=== PATIENT | female | born 1945 | race Caucasian/White ===

== ENCOUNTER 2018-07-02 12:52 | Inpatient (IN) ==
[2018-07-02] MEDS ORDERED: HYDROmorphone HCL 1 MG/ML DISP.SYRIN IV ONE (13:00)
--- NOTE | 2018-07-02 13:13 | ERNOTE ---
Lower Extremity HPI - Narrative Date of Service: 07/02/18 - General Lower Extremities Pain: hip: right Time Seen by Provider: 07/02/18 12:58 Source: patient Exam Limitations: no limitations - Immun/Allergies/Home Medications Immunizations: IMMUNIZATION HX Immunizations Up to Date Yes Allergies/Adverse Reactions: Allergies Allergy/AdvReac Type Severity Reaction Status Date / Time Shondnk-Zad-Jid Reductase Allergy Mild Verified 07/02/18 13:01 Inhibitor Home Medications: HOME MEDICATIONS HYDROcodone/ACETAMINOPHEN [Hydrocodon-Acetaminoph 7.5-325] 1 ea PO QID 07/02/18 [Last Taken Unknown] RX: Hydroxyzine HCl 25 mg PO QID 07/02/18 [Last Taken Unknown] RX: Pantoprazole Sodium 40 mg PO DAILY 07/02/18 [Last Taken Unknown] Triamterene/Hydrochlorothiazid [Maxzide 37.5MG/25 MG] 1 tab PO DAILY 07/02/18 [Last Taken Unknown] - History of Present Illness Narrative: Pt. comes in by EMS with c/o R hip fracture that she obtained when she slipped and fell this morning. Pt. denies any numbness, tingling, fever, SOB, or CP. Pt. denies any alleviating factors and states that any movement exacerbates the pain. Pt. was seen at [facility] this morning and was found to have an intertrochanteric fracture of the R hip. Occurred: this morning Location of Incident: home Method of Injury: Reports: fell Reason for Fall: Reports: slipped Loss of Consciousness: Reports: no loss of consciousness Modifying Factors - (Improves): Reports: pain medication Modifying Factors - (Worsens): Reports: movement Associated Symptoms: Reports: unable to bear weight. Denies: snapping, popping sensation, dizzy/light headedness, headache, weakness, sensory loss, chest pain, vomiting/diarrhea, bowel/bladder problems Other Injuries: Reports: none Subsequent Symptoms: Denies: sensory loss, numbness, motor loss, bowel/bladder problem Prior Treament: Reports: recently seen, treated by physician. Denies: recently hospitalized, similar symptoms before, currently on antibiotics Review of Systems - Review of Systems Constitutional: Present: no symptoms reported. Absent: fever, chills, weakness, fatigue, malaise EYE: Present: no symptoms reported. Absent: eye pain, double vision ENT: Present: no symptoms reported. Absent: nose pain, nose congestion, nasal drainage, sore throat Respiratory: Present: no symptoms reported. Absent: shortness of breath, cough, wheezing Cardiology: Present: no symptoms reported. Absent: chest pain, palpitations, edema Gastrointestinal/Abdominal: Present: no symptoms reported Genitourinary: Present: no symptoms reported Musculoskeletal: Present: joint pain - R hip Skin: Present: no symptoms reported. Absent: rash, change in color Neurological: Present: no symptoms reported. Absent: headache, dizziness/light- headedness, numbness, tingling All Other Systems: All systems neg except as marked Medical History (Last Updated 07/02/18 @ 13:07 by Lory Platt RN) GERD (gastroesophageal reflux disease) HTN (hypertension) Surgical History: Surgical History (Last Updated 07/02/18 @ 13:07 by Lory Platt RN) Hx of fracture of left hip Hx of hysterectomy hx of jaw repair Family History: Family History (Last Updated 07/02/18 @ 13:07 by Lory Platt RN) Other No pertinent family history Social History: Preferred Language Guinean Do you have any yarsanism or No cultural preference? Smoking Status Never smoker Alcohol Use none Drug Use none No Social History Section defined Physical Exam - Physical Exam General Appearance: Present: wd/wn, alert, no apparent distress Head Exam: Present: normal inspection, no evidence of injury, no tenderness w palpation Eye Exam: Normal inspection: bilateral Ears, Nose, Throat: Present: normal ENT inspection, normal pharynx Neck: Present: normal inspection, nontender, supple, full range of motion. Absent: lymphadenopathy (R), lymphadenopathy (L) Respiratory: Present: no respiratory distress, normal breath sounds, no accessory muscle use, chest nontender, lungs clear Cardiovascular/Chest: Present: regular rate, rhythm, no murmur, normal peripheral pulses Back Exam: Present: normal inspection Extremity Exam: Present: decreased range of motion - R hip abduction and straight leg raise, pelvis stable, bony tenderness - R prox femur. Absent: pedal edema, calf tenderness Neurological Exam: Present: alert, oriented, normal mood/affect, no motor/sensory deficits, regional account executive II-XII nml as tested, normal cerebellar test Skin Exam: Present: normal color, warm/dry. Absent: pallor, skin rash Progress - Date and Time Seen: Date and Time: 07/02/18 13:10 Called and discussed with Dr Thomas. He states to plan surgery for tomorrow an consult medicine for admit. Reviewed all Labs and xray no interventions need performed prior to OR as result of those. 07/02/18 14:[address] Woodward who accepts pt. for admission. Will admit acute as pt. will likely need 3 day stay due to staying tonight and having sx tomorrow. - Results and Orders Patient's Lab Results:: I have reviewed the patient's lab results. - from [place] - Vital Signs Patient's Vital Signs:: I have reviewed the patient's vital signs. Vital Signs: Vital Signs 07/02/18 12:59 07/02/18 13:02 Temperature 36.7 C Pulse Rate 79 68 Respiratory Rate 15 Blood Pressure 117/33 O2 Sat by Pulse Oximetry 99 93 - EKG EKG #1 EKG: NSR, nonspecific ST T wave changes - not acute EKG read: Reviewed by me EKG Comments: Interp by Dr Hernandez - Progress/Reassessment Chief Complaint: Lower Extremity Pain/ Injury Departure Clinical Impression: Hip fracture Qualifiers: Encounter type: initial encounter Fracture type: closed Laterality: right Qualified Code(s): S72.001A - Fracture of unspecified part of neck of right femur, initial encounter for closed fracture - Departure Disposition: Still a patient Condition: Fair
[2018-07-02] MEDS: HYDROmorphone HCL 2 MG/ML VIAL IV PRN ×3 (15:44→22:11)
--- NOTE | 2018-07-02 19:07 | HP ---
Chief Complaint - Chief Complaint Date of Service: 07/02/18 Time of Service: 18:30 Chief Complaint: R. Hip pain./ R. intertrochanteric fracture History of Present Illness: Nomra salmon is a 73-year-old female who fell at home. She tried to get up and felt popping and clicking in her hip. EMS was summoned and found her on the floor with the right leg shortened and externally rotated. She is brought to the hospital emergency room where she was diagnosed with a right intertrochanteric fracture. She broke her left hip about 11 years ago. She's had multiple fractures in her life. Other surgeries include total abdominal hysterectomy, left jaw reconstruction, and the ORIF of the left hip about a decade ago. She ordinarily enjoys good health. Medical History (Last Updated 07/02/18 @ 16:38 by Hermelinda Jimenez RN) Chronic pain GERD (gastroesophageal reflux disease) HTN (hypertension) Surgical History: Surgical History (Last Reviewed 07/02/18 @ 15:08 by Hermelinda Jimenez RN) Hx of fracture of left hip Hx of hysterectomy hx of jaw repair Family History: Family History (Last Reviewed 07/02/18 @ 15:08 by Hermelinda Jimenez RN) Other No pertinent family history Social History: Patient Lives/Resources Home Utilized Preferred Language British Do you have any restorationism or No cultural preference? Smoking Status Current every day smoker Have you smoked in the past 12 Yes months Do you dip or chew tobacco No Alcohol Use none Drug Use none No Social History Section defined Review Of Systems (GEN) - Review of Systems EENTM: Present: No Symptoms Reported Respiratory: Present: No Symptoms Reported Cardiac: Present: No Symptoms Reported Abdominal: Present: No Symptoms Reported Genitourinary: Present: No Symptoms Reported Musculoskeletal: Present: Joint Pain - Right hip Neurological: Present: Tremors - Appears to have a benign essential tremor, Other - History of reflex sympathetic dystrophy Skin: Present: No Symptoms Reported Endocrine: Present: No Symptoms Reported Misc: All systems neg except as marked Immunizations: IMMUNIZATION HX Immunizations Up to Date Yes Allergies/Adverse Reactions: Allergies Allergy/AdvReac Type Severity Reaction Status Date / Time Wjqbkvo-Xtu-Vbw Reductase Allergy Mild Verified 07/02/18 15:08 Inhibitor Home Medications: HOME MEDICATIONS HYDROcodone/ACETAMINOPHEN [Hydrocodon-Acetaminoph 7.5-325] 1 ea PO QID 07/02/18 [Last Taken Unknown] Hydroxyzine HCl 25 mg PO QID PRN 07/02/18 [Last Taken Unknown] Pantoprazole Sodium 40 mg PO DAILY 07/02/18 [Last Taken Unknown] Triamterene/Hydrochlorothiazid [Maxzide 37.5MG/25 MG] 1 tab PO DAILY 07/02/18 [Last Taken Unknown] Exam - Exam Vital Signs: Vital Signs - Last Taken Temp 36.6 C 07/02/18 14:13 Pulse 79 07/02/18 14:24 Resp 15 07/02/18 14:24 BP 108/41 07/02/18 14:24 Pulse Ox 97 07/02/18 14:24 Constitutional: Present: Alert, Oriented x3, Cooperative, Well developed, Well nourished, No distress ENT Exam: Present: normal ENT inspection, hearing grossly normal, pharynx normal, TMs normal Eye Exam: bilateral eye: normal inspection, PERRL, EOMI Neck: Present: non-tender, full range of motion, supple, normal inspection Back Exam: Present: normal inspection Breasts: Present: Exam deferred Respiratory: Present: chest non-tender, lungs clear, normal breath sounds, no respiratory distress Cardiovascular/Chest: Present: normal peripheral pulses, regular rate, rhythm, no chest tenderness, no edema, no gallop, no JVD, no murmur Peripheral Pulses: carotid (R): 2+, carotid (L): 2+ Abdomen: Present: Normal bowel sounds, soft, nontender, nondistended /Rectal: Present: Exam deferred Extremity: Present: other - Right hip pain with shortening and external rotation of the right lower extremity. Other extremities are unremarkable. Lymphatic: Present: no adenopathy Neurologic: Present: case preparer and liner II-XII nml as tested, no motor/sensory deficits, alert, other - Benign essential tremor Appearance: Present: appropriate appearance, appropriate insight, neat, no memory impairment Eye contact: Present: cooperative, good eye contact, normal speech, avoids eye contact Thoughts: Present: normal thought pattern, no apparent hallucination Assessment/Plan - Narrative Narrative: 1. Preop lab and EKG have been reviewed and are unremarkable. 2. Physical exam is consistent with right intertrochanteric fracture 3. Benign essential tremor 4. Reflex sympathetic dystrophy 5. She has a full upper denture and no lower denture. Plan: 1. Mrs. salmon is medically approved for her anticipated ORIF of the right hip tomorrow. She is requesting this to be done with spinal anesthesia but she will discuss that with anesthesia and surgery. She had her left hip repaired about 11 years ago under spinal anesthesia. 2. Pain management with the allotted 1 mg IV every 3 hours. She has been doing this since the emergency room and it has helped her pain control quite well. 3. Repeat CBC and BMP tomorrow morning - Assessment/Plan (1) Intertrochanteric fracture of right hip Problem: Acute Qualifiers: Encounter type: initial encounter Fracture type: closed Fracture alignment: displaced Qualified Code(s): S72.141A - Displaced intertrochanteric fracture of right femur, initial encounter for closed fracture (2) Benign essential tremor Problem: Chronic (3) Reflex sympathetic dystrophy Problem: Chronic (4) history of multiple fractures Problem: Chronic
[2018-07-02] MEDS ORDERED: hydrOXYzine HCL 25 MG TABLET PO PRN (19:48)
[2018-07-02] MEDS: PANTOPRAZOLE SODIUM 40 MG in NORMAL SALINE 100 ML IV SCH (21:18)
[2018-07-03] MEDS: HYDROmorphone HCL 2 MG/ML VIAL IV PRN ×2 (01:35→04:44)
[2018-07-03 05:17] LABS: Hematocrit 30.8 % (37.0-47.0); Hemoglobin 10.5 gm/dL (12.5-16.0); Mean Cell Volume 91.4 fl (78-100); Mean Corpuscular Hemoglobin 31.2 pg (27-31); Mean Corpuscular Hgb Conc 34.1 g/dl (32-36); Mean Platelet Volume 8.9 fl (8-12.5); Neutrophil # 7.7 K/mm3 (1.3-6.0); Neutrophil % 64.6 % (42-75.0); Platelet Count 225 K/mm3 (150-450); Red Blood Count 3.37 M/mm3 (4.2-5.4); Red Cell Distribution Width 12.7 % (11.5-14.0); White Blood Count 11.9 K/mm3 (4.0-10.5)
[2018-07-03 05:25] LABS: Anion Gap 13.2 mmol/L (6.8-13.8); Calcium * 8.7 mg/dL (7.9-10.9); Carbon Dioxide 25.9 mmol/L (24-32.6); Estimated Creat Clear 55.8; Potassium 4.1 mmol/L (3.4-4.6)
[2018-07-03] MEDS: HYDROmorphone HCL 1 MG/ML DISP.SYRIN IV PRN ×3 (07:34→14:40)
[2018-07-03] MEDS ORDERED: NORMAL SALINE 500 ML IV PRN (09:04)
--- NOTE | 2018-07-03 09:21 | CONS ---
[facility] - General Date of Service: 07/03/18 Narrative: Patient presented to [facility] after a fall. Patient notes she was putting on her house coat and lost her balance and fell onto her right hip. She had immediate pain at this time. She was then taken to the hospital where it was noted that she had a right intertrochanteric femur fracture. Patient was then transferred to [facility], and admitted for care. Her pain today is an 8/10, she just received pain medication for this. She states her pain is worse with movement better with rest. She notes no other significant symptoms at this time. Source: patient - History of Present Illness Allergies/Adverse Reactions: Allergies Kfkappn-Qgm-Vvx Reductase Inhibitor Allergy (Mild, Verified 07/02/18 15:08) Home Medications: Home Medications Medication Instructions Recorded Last Taken HYDROcodone/ACETAMINOPHEN 1 ea PO QID 07/02/18 Unknown [Hydrocodon-Acetaminoph 7.5-325] Hydroxyzine HCl 25 mg PO QID PRN 07/02/18 Unknown Pantoprazole Sodium 40 mg PO DAILY 07/02/18 Unknown Triamterene/Hydrochlorothiazid 1 tab PO DAILY 07/02/18 Unknown [Maxzide 37.5MG/25 MG] Medications - Medications Current Medications: Current Medications Hydromorphone HCl (Dilaudid) 1 mg IV Q3H PRN PRN Reason: Severe Pain (pain scale 7-10) Stop: 08/02/18 06:22 Last Admin: 07/03/18 07:34 Dose: 1 mg Documented by: Pantoprazole Sodium 40 mg/ (Sodium Chloride) 100 mls @ 400 mls/hr IV Q24H [facility] Stop: 08/01/18 19:16 Last Infusion: 07/03/18 08:56 Dose: Infused Documented by: Physical Examination - Exam Vital Signs: Vital Signs - Last Taken Temp 37.3 C 07/03/18 06:50 Pulse 95 07/03/18 06:50 Resp 20 07/03/18 06:50 BP 119/72 07/03/18 06:50 Pulse Ox 93 07/03/18 06:50 O2 Oxygen Delivery Method Room Air Constitutional: Present: Alert, Cooperative, Mild distress - pain of right hip Extremity: Present: other - RLE--> no obvious abrasions or wounds, sensation intact light touch, distal pulses 2+, 5/5 plantar flexion dorsiflexion of the ankle, diffuse tenderness to palpation about right hip, significant lack of range of motion due to pain Eye contact: Present: cooperative Thoughts: Present: normal thought pattern - Results and Findings: Lab/Microbiology results last 24 hrs: Abnormal/Pending Laboratory Last 24 HRS 07/03/18 07/03/18 05:10 05:10 WBC 11.9 H RBC 3.37 L Hgb 10.5 L Hct 30.8 L MCH 31.2 H Immature Gran % (Auto) 1.00 H Immature Gran # (Auto) 0.12 H Neutrophils # 7.7 H BUN/Creatinine Ratio 22.0 H - Assessments/Findings (1) Intertrochanteric fracture of right hip Problem: Acute Qualifiers: Encounter type: initial encounter Fracture type: closed Fracture alignment: displaced Qualified Code(s): S72.141A - Displaced intertrochanteric fracture of right femur, initial encounter for closed fracture Plan - Plan Plan: - 73 y/o female presents status post a fall. Patient was seen at [facility] x-ray revealed a right intertrochanteric femur fracture. She was then transferred to [facility] for further care. Patient was admitted, she has been seen by medicine and cleared for surgical intervention. Discussed with patient conservative or surgical intervention of her right femur fracture. Discussed risk first benefits including but not limited to continued pain, malunion versus nonunion fracture healing, DVT, infection, bleeding, cardiac risk of surgery, paralysis, stroke. Patient agreed to proceed with surgical intervention on 07/03/[address] Thomas. Consents have been signed and patient will undergo surgical intervention of right closed reduction with cephalo-medullary nailing of intertrochanteric femur fracture. All patient's questions have been answered appropriate this time.
--- NOTE | 2018-07-03 10:19 | ANES ---
Anesthesia Pre Procedure Eval Vitals/Labs: Last Vital Signs Temp 37.3 C 07/03/18 06:50 Pulse 95 07/03/18 06:50 Resp 20 07/03/18 06:50 BP 119/72 07/03/18 06:50 Pulse Ox 93 07/03/18 06:50 HOME MEDICATIONS HYDROcodone/ACETAMINOPHEN [Hydrocodon-Acetaminoph 7.5-325] 1 ea PO QID 07/02/18 [Last Taken Unknown] Hydroxyzine HCl 25 mg PO QID PRN 07/02/18 [Last Taken Unknown] Pantoprazole Sodium 40 mg PO DAILY 07/02/18 [Last Taken Unknown] Triamterene/Hydrochlorothiazid [Maxzide 37.5MG/25 MG] 1 tab PO DAILY 07/02/18 [Last Taken Unknown] Allergies/Adverse Reactions: Allergies Allergy/AdvReac Type Severity Reaction Status Date / Time Mdoxghx-Mjq-Anp Reductase Allergy Mild Verified 07/02/18 15:08 Inhibitor - Planned Procedure Planned Procedure: ORIF right hip Medication List Reviewed:: Yes Allergies Verified: Yes Medical History (Last Reviewed 07/03/18 @ 10:18 by Nakul Collins CRNA) Chronic pain GERD (gastroesophageal reflux disease) HTN (hypertension) Surgical History (Last Reviewed 07/03/18 @ 10:18 by Nakul Collins CRNA) Hx of fracture of left hip Hx of hysterectomy hx of jaw repair Family History (Last Reviewed 07/03/18 @ 10:18 by Nakul Collins CRNA) Other No pertinent family history - Family Anesthesia History Family History:: no untoward family reactions to anesthesia, no familial bleeding tendencies, no family history of clotting disorders, no family history of premature - Airway/Neck/Teeth Within Normal Limits:: Yes Mallampatti Score: 2 Thyromental (T-M) distance: > 6 cm Mandibulo Hyoid distance: > 3 cm - Respiratory Respiratory Physical: lungs clear Smoking Status: Current every day smoker Discussed smoking cessation including day of surgery: Yes Sleep Apnea currently treated: No Sleep Apnea by current assessment: No Discussed Risks/Treatment of BRENNON: No - Cardiovascular Tolerate Activity: Fair Heart Sounds: S1 & S2, Regular - Anesthesia Assessment and Plan ASA Class: PS, III Anesthesia Type Plan: Spinal
--- NOTE | 2018-07-03 11:16 | PN ---
Subjective - Date and Time Seen Date: 07/03/18 Time: 09:00 Subjective Narrative: Norma salmon is having more discomfort this morning and the fractured right hip. She is to go to surgery sometime today for an ORIF right hip to repair the intertrochanteric fracture. She is requesting spinal anesthesia. Otherwise there've been no changes through the night. Dilaudid 1 mg every 3 hours has been effective but she is in obvious discomfort at this time. She is medically cleared for her surgery. Objective - Review of Systems Generalized/Overall Review: Reports: No Symptoms Reported EENTM: Reports: No Symptoms Reported Cardiac: Reports: No Symptoms Reported Abdominal: Reports: No Symptoms Reported Genitourinary Symptoms: Reports: No Symptoms Reported Musculoskeletal Complaints: Reports: Joint Pain - Due to fractured right hip Neurological: Reports: No Symptoms Reported Skin: Reports: No Symptoms Reported Endocrine: Reports: No Symptoms Reported - Vitals Vitals: Last Vital Signs Temp 37.3 C 07/03/18 06:50 Pulse 81 07/03/18 07:00 Resp 20 07/03/18 06:50 BP 119/72 07/03/18 06:50 Pulse Ox 93 07/03/18 06:50 - Abnormal Lab Findings Abnormal Lab Findings: Abnormal Lab Results 07/03/18 07/03/18 Range/Units 05:10 05:10 WBC 11.9 H (4.0-10.5) K/mm3 RBC 3.37 L (4.2-5.4) M/mm3 Hgb 10.5 L (12.5-16.0) gm/dL Hct 30.8 L (37.0-47.0) % MCH 31.2 H (27-31) pg Immature Gran % (Auto) 1.00 H (0.001-0.429) % Immature Gran # (Auto) 0.12 H (0.000-0.0310) K/mm3 Neutrophils # 7.7 H (1.3-6.0) K/mm3 BUN/Creatinine Ratio 22.0 H (9.0-21.6) - EKG/Xray Findings EKG: NSR EKG read: Interp. by me XRAY: hip - Right Interpretation: Reviewed by me - Exam Constitutional: Present: Alert, Oriented x3, Cooperative, Well developed, Well nourished, No distress ENT Exam: Present: normal ENT inspection, hearing grossly normal, pharynx normal, TMs normal Neck: Present: non-tender, full range of motion, supple Breasts: Present: Exam deferred Respiratory: Present: chest non-tender, lungs clear, normal breath sounds, no respiratory distress, no accessory muscle use Cardiovascular/Chest: Present: normal peripheral pulses, regular rate, rhythm, no chest tenderness, no edema, no gallop, no JVD, no murmur, no rub Abdomen: Present: Normal bowel sounds, soft, nontender, nondistended, no rebound tenderness, no hepatospenomegaly, no masses /Rectal: Present: Exam deferred Extremity: Present: normal range of motion - Of the upper extremities and left lower extremity. The right hip is fractured and so range of motion cannot be assessed. Skin Exam: Present: normal color, warm/dry, no cyanosis Lymphatic: Present: no adenopathy, axilla node tender (R) Neurologic: Present: clinical auditor II-XII nml as tested, normal cerebellar test Appearance: Present: appropriate appearance, appropriate insight, neat, no memory impairment Eye contact: Present: cooperative, good eye contact, normal speech Thoughts: Present: normal thought pattern, no apparent hallucination Cauti Physician Documentation - Urinary Catheter Management Urethral (Ferrer) Urethral Indwelling: No Date of Insertion: 07/02/18 Time of Insertion: 11:00 Assessment/Plan Plan Narrative: 1. Fluid bolus of 500 mL of normal saline to be given at 11 AM since she is having spinal anesthesia. She has been nothing by mouth since midnight. She's had no IV fluids since admission. She didn't eat well yesterday evening. 2. Proceed with planned right hip ORIF procedure. - Problems/Diagnosis (1) Intertrochanteric fracture of right hip Problem: Acute Qualifiers: Encounter type: initial encounter Fracture type: closed Fracture alignment: displaced Qualified Code(s): S72.141A - Displaced intertrochanteric fracture of right femur, initial encounter for closed fracture (2) Benign essential tremor Problem: Chronic (3) Reflex sympathetic dystrophy Problem: Chronic (4) history of multiple fractures Problem: Chronic
[2018-07-03] MEDS ORDERED: ceFAZolin SODIUM 1 GM in DEXTROSE 5 % IN WATER 100 ML IV ONE ×2 (11:21)
[2018-07-03] MEDS: RINGER'S SOLUTION,LACTATED 1,000 ML IV PRN ×5 (11:45→23:18)
[2018-07-03] MEDS ORDERED: ceFAZolin SODIUM 1 GM VIAL IV PRN (12:30)
--- NOTE | 2018-07-03 14:14 | ANES ---
Post Anesthesia Discharge - Transfer of Care Transfer of Care handoff given to nurse: Yes - Discharge from PACU Discharge from PACU when meets criteria: Yes - Alert and comfortable.
--- NOTE | 2018-07-03 14:29 | ANES ---
Post Anesthesia Assessment - Vital Signs Vitals: Last Vital Signs Temp 36.9 C 07/03/18 14:25 Pulse 107 H 07/03/18 14:25 Resp 21 H 07/03/18 14:25 BP 105/43 07/03/18 14:25 Pulse Ox 93 07/03/18 14:25 Airway Patency: Normal - Mental Status Level Of Consciousness: Awake, Alert, Appropriate - Pain Level Pain Score: 0 - N/V Assessment Nausea/Vomiting Presence: None Dehydration:: No - Additional Notes Comments:: Returning to Room.
[2018-07-03] MEDS ORDERED: ACETAMINOPHEN 500 MG TABLET PO PRN (16:06)
[2018-07-03] MEDS ORDERED: MAGNESIUM HYDROXIDE 30 ML UDC PO PRN (16:06)
[2018-07-03] MEDS ORDERED: oxyCODONE HCL/ACETAMINOPHEN 1 TAB TABLET PO PRN (16:06)
[2018-07-03] MEDS ORDERED: ONDANSETRON HCL/PF 2 MG/ML VIAL IV PRN (16:06)
[2018-07-03] MEDS ORDERED: MAG HYDROX/ALUMINUM HYD/SIMETH 30 ML UDC PO PRN (16:06)
--- NOTE | 2018-07-03 16:16 | OR ---
Operative Report - Dictated Report Narrative: Date: 07/03/2018 Surgeon: Kirk Thomas M.D. Taxicab Dispatcher: Mani Mosher PA-C Preoperative diagnosis: Right reverse obliquity intertrochanteric femur fracture Postoperative diagnosis: Reverse obliquity intertrochanteric femur fracture Operations and procedures: 1. Open reduction, cephalo-medullary fixation right reverse obliquity intertrochanteric femur fracture 2. Intraoperative interpretation of radiographs Anesthesia: Spinal Specimens: None Estimated blood loss: 300 Milliliters Retained implants: [employer] Trigen InterTAN 130 degree size 11.5 mm by 20 centimeter nail with 100 millimeter lag screw and 85 millimeter compression screw, with distal locking screw Complications: None Indications for procedure: Norma is a 73-year-old female who injured the right leg after a fall from standing height. They were admitted to the hospital after being evaluated in the emergency department. Once the medical provider felt that they were stable for surgical treatment, the risks and benefits alternatives were discussed. The risks of , blood clots, bleeding, infection, nerve/tendon/blood vessel injury, malunion, nonunion, failure of implants, painful implants, arthrosis, and need for additional procedures were discussed. The extremity was marked and consent was obtained on the floor. Procedure: After marking the operative extremity on the floor, the patient was taken to the operating room. A timeout was performed. IV antibiotics consisting of 1 g of Ancef was administered. A spinal anesthetic was induced by anesthesia, and the patient was then placed onto a fracture table with a well-padded perineal post. The non-operative leg was placed in a well-padded well leg jain in lithotomy position with an SCD on the leg. The operative leg was placed in a well-padded traction boot. Longitudinal traction, internal rotation, flexion, and adduction were utilized in order to attempt to reduce the fracture, but we were unable to adequately reduce the fracture closed. Preliminary images were attained utilizing C-arm in both the AP and lateral views. This confirmed that we had obtained adequate visualization of the fracture as well as reduction. Next the hip was then prepped and draped in a standard sterile fashion. An incision was made laterally over the fracture site approximately 7 cm in length. The IT band was sharply incised revealing the vastus lateralis which was bluntly dissected off the lateral aspect of the proximal femur and retracted superiorly with a Hohmann retractor. This revealed the fracture site which was noted to be a reverse obliquity fracture at the level of the lesser trochanter. Combination of a ball spike pusher and a bone hook were used to hold the fracture reduced. Next, the guidewire was placed percutaneously proximal to the greater trochanter to saleem a starting point at the medial aspect of the greater trochanter centered on the lateral view. This was advanced down to the level below the lesser trochanter. A scalpel was utilized to dissect down to the greater trochanter in order to lace the soft tissue protector down to bone. The entry reamer was then advanced down the proximal femur to the level of the lesser trochanter. The above nail was then selected and impacted into place. The outrigger was utilized in order to confirm the appropriate depth of the nail. Using the alignment device on the outrigger, the guidewire was was placed into the femoral head in a center center position on AP and lateral views. A tip apex distance less than 25 mm combined was obtained. Once we felt that we had placed the guidewire in the appropriate position, it was measured. Next the compression screw entry drill was advanced through the lateral cortex. This was then drilled down to the appropriate depth for the compression screw, again confirming that we are within the confines the bone. The derotational bar was then placed and the lag screw was drilled to the appropriate depth. The lag screw was then secured in place ensuring that we were within the confines of the bone. The compression screw was then inserted. Once it was felt we had adequately stabilized the intertrochanteric fracture, the distal interlocking screw was placed in a static position confirmed to be the appropriate length and within the nail on both AP and lateral views. The nail was secured and the outrigger was removed. The wounds were then thoroughly irrigated. Final images were obtained. The hip was placed through range of motion and showed no crepitance. The deep fascia was closed with 0 Vicryl, the subcutaneous tissue with 3-0 Vicryl, and the skin was closed with jazzy. Omar rile dressings of Xeroform, 4 x 4s, and tegaderm were applied. All sponge, sharp, and instrument counts were correct prior to closing the wounds. The patient was then awoken and transferred to the postanesthesia care unit in stable condition.
[2018-07-03] MEDS: ceFAZolin SODIUM 1 GM in DEXTROSE 5 % IN WATER 100 ML IV SCH ×4 (16:36→23:21)
[2018-07-03] MEDS: oxyCODONE HCL/ACETAMINOPHEN 1 TAB TABLET PO PRN ×2 (16:36→20:50)
[2018-07-03] MEDS ORDERED: ENOXAPARIN SODIUM 40 MG/0.4 ML SYRG SC SCH (17:00)
[2018-07-03] MEDS: MORPHINE SULFATE 2 MG/ML DISP.SYRIN IV PRN ×2 (18:58→23:13)
[2018-07-03] MEDS: PANTOPRAZOLE SODIUM 40 MG in NORMAL SALINE 100 ML IV SCH (19:25)
[2018-07-03] MEDS: SENNOSIDES/DOCUSATE SODIUM 1 TAB TABLET PO SCH (23:19)
[2018-07-04] MEDS: oxyCODONE HCL/ACETAMINOPHEN 1 TAB TABLET PO PRN ×5 (01:34→20:53)
[2018-07-04] MEDS: MORPHINE SULFATE 2 MG/ML DISP.SYRIN IV PRN ×6 (03:49→20:26)
[2018-07-04 05:02] LABS: Hemoglobin 8.1 gm/dL (12.5-16.0); Mean Corpuscular Hemoglobin 31.6 pg (27-31); Mean Platelet Volume 9.2 fl (8-12.5); Platelet Count 171 K/mm3 (150-450); Red Blood Count 2.56 M/mm3 (4.2-5.4); Red Cell Distribution Width 12.7 % (11.5-14.0); White Blood Count 9.1 K/mm3 (4.0-10.5)
[2018-07-04 05:03] LABS: Hematocrit 24.1 % (37.0-47.0)
[2018-07-04 05:14] LABS: Anion Gap 10.6 mmol/L (6.8-13.8); BUN/Creatinine Ratio 19.2 (9.0-21.6); Carbon Dioxide 26.9 mmol/L (24-32.6); Estimated Creat Clear 65.1; Potassium 3.5 mmol/L (3.4-4.6)
[2018-07-04] MEDS: RINGER'S SOLUTION,LACTATED 1,000 ML IV PRN (07:54)
[2018-07-04] MEDS: ENOXAPARIN SODIUM 40 MG/0.4 ML SYRG SC SCH (08:43)
[2018-07-04] MEDS: ceFAZolin SODIUM 1 GM in DEXTROSE 5 % IN WATER 100 ML IV SCH ×2 (09:03)
--- NOTE | 2018-07-04 09:23 | PN ---
Subjective - Date and Time Seen Date: 07/04/18 Time: 07:30 Subjective Narrative: Patient is up sitting in chair upon presentation. She states she has moderate pain, worse with standing, better with rest. She notes she just received a dose of pain medication. She reports no other acute concerns currently. Objective - Vitals Vitals: Last Vital Signs Temp 37.9 C 07/04/18 08:45 Pulse 92 07/04/18 08:45 Resp 14 07/04/18 08:45 BP 96/41 07/04/18 08:45 Pulse Ox 96 07/04/18 08:45 - Abnormal Lab Findings Abnormal Lab Findings: Abnormal Lab Results 07/04/18 07/04/18 Range/Units 05:01 05:01 RBC 2.56 L (4.2-5.4) M/mm3 Hgb 8.1 L (12.5-16.0) gm/dL Hct 24.1 L (37.0-47.0) % MCH 31.6 H (27-31) pg Random Glucose 122 H (70-110) mg/dL - Exam Constitutional: Present: Alert, Cooperative Respiratory: Present: no respiratory distress Extremity: Present: other - RLE--> bandages c/d/i, SILT, 5/5 PF/DF, distal capillary refill brisk, diffuse ttp over right hip region Eye contact: Present: cooperative Cauti Physician Documentation - Urinary Catheter Management Urethral (Ferrer) Urethral Indwelling: No Date of Insertion: 07/02/18 Time of Insertion: 11:00 Assessment/Plan Plan Narrative: - 73 y/o female post-op day #1 s/p right open reduction with cephalmedullary nailing of intertrochanteric femur fracture - WBAT with assistance PRN - PT/OT progress as tolerated - PO diet as tolerated - PO pain medication PRN - VTE prophylaxis: lovenox, SCDs in bed, tawanda hose - Hgb 8.1 continue to monitor - Chronic medical problems per medicine team - Disps: Continue inpatient care until all PT goals are met, pain well contr olled, evaluate discharge to senior care facility vs. home - Problems/Diagnosis (1) Intertrochanteric fracture of right hip Problem: Acute Qualifiers: Encounter type: initial encounter Fracture type: closed Fracture alignment: displaced Qualified Code(s): S72.141A - Displaced intertrochanteric fracture of right femur, initial encounter for closed fracture
--- NOTE | 2018-07-04 12:43 | PN ---
Subjective - Date and Time Seen Date: 07/04/18 Time: 09:45 Subjective Narrative: Genital and his first postop from a right ORIF to repair an intertrochanteric fracture. She has been up once and it was very painful to get out of bed but less painful standing up from the chair and going back to bed. After much discussion she agreed to go to a nursing home facility. She has no other complaints or requests this morning. Nursing reports no new problems. Objective - Review of Systems Generalized/Overall Review: Reports: No Symptoms Reported EENTM: Reports: No Symptoms Reported Respiratory: Reports: No Symptoms Reported Cardiac: Reports: No Symptoms Reported Abdominal: Reports: No Symptoms Reported Genitourinary Symptoms: Reports: No Symptoms Reported Musculoskeletal Complaints: Reports: Joint Pain - Secondary to ORIF right hip Neurological: Reports: No Symptoms Reported Skin: Reports: No Symptoms Reported Endocrine: Reports: No Symptoms Reported Misc: All systems neg except as marked - Vitals Vitals: Last Vital Signs Temp 37.9 C 07/04/18 10:29 Pulse 85 07/04/18 10:29 Resp 16 07/04/18 10:29 BP 122/60 07/04/18 10:29 Pulse Ox 96 07/04/18 08:45 - Abnormal Lab Findings Abnormal Lab Findings: Abnormal Lab Results 07/04/18 07/04/18 Range/Units 05:01 05:01 RBC 2.56 L (4.2-5.4) M/mm3 Hgb 8.1 L (12.5-16.0) gm/dL Hct 24.1 L (37.0-47.0) % MCH 31.6 H (27-31) pg Random Glucose 122 H (70-110) mg/dL - Exam Constitutional: Present: Alert, Oriented x3, Cooperative, Well developed, Well nourished, No distress ENT Exam: Present: normal ENT inspection, hearing grossly normal, pharynx normal Neck: Present: non-tender, limited range of motion Breasts: Present: Exam deferred Respiratory: Present: chest non-tender, rhonchi - Which cleared with coughing Cardiovascular/Chest: Present: normal peripheral pulses, regular rate, rhythm Abdomen: Present: Normal bowel sounds, soft, nontender /Rectal: Present: Exam deferred Extremity: Present: normal range of motion - Of both arms and left lower extremity. Limited motion in the right hip being status post postop day #1. Skin Exam: Present: normal color Lymphatic: Present: no adenopathy Neurologic: Present: product safety manager II-XII nml as tested Appearance: Present: appropriate appearance Eye contact: Present: cooperative Thoughts: Present: normal thought pattern Cauti Physician Documentation - Urinary Catheter Management Urethral (Ferrer) Urethral Indwelling: No Date of Insertion: 07/02/18 Time of Insertion: 11:00 Assessment/Plan Plan Narrative: 1. Continue to progress activity as directed by orthopedics and as tolerated. 2. Anticipate discharge tomorrow to nursing home facility 3. Morning labs to include a CBC and CMP - Problems/Diagnosis (1) Intertrochanteric fracture of right hip Problem: Acute Qualifiers: Encounter type: initial encounter Fracture type: closed Fracture alignment: displaced Qualified Code(s): S72.141A - Displaced intertrochanteric fracture of right femur, initial encounter for closed fracture (2) Benign essential tremor Problem: Chronic (3) Reflex sympathetic dystrophy Problem: Chronic (4) history of multiple fractures Problem: Chronic
[2018-07-04] MEDS: PANTOPRAZOLE SODIUM 40 MG in NORMAL SALINE 100 ML IV SCH (20:25)
[2018-07-04] MEDS: SENNOSIDES/DOCUSATE SODIUM 1 TAB TABLET PO SCH (20:26)
[2018-07-05] MEDS: MORPHINE SULFATE 2 MG/ML DISP.SYRIN IV PRN ×3 (00:21→09:37)
[2018-07-05] MEDS: oxyCODONE HCL/ACETAMINOPHEN 1 TAB TABLET PO PRN ×3 (03:57→12:22)
[2018-07-05 05:31] LABS: Mean Cell Volume 93.5 fl (78-100); Mean Corpuscular Hgb Conc 33.2 g/dl (32-36); Mean Platelet Volume 9.5 fl (8-12.5); Platelet Count 177 K/mm3 (150-450); Red Blood Count 2.45 M/mm3 (4.2-5.4); Red Cell Distribution Width 12.4 % (11.5-14.0); White Blood Count 10.3 K/mm3 (4.0-10.5)
[2018-07-05 05:35] LABS: Hemoglobin 7.6 gm/dL (12.5-16.0)
[2018-07-05 05:36] LABS: Hematocrit 22.9 % (37.0-47.0)
[2018-07-05 05:39] LABS: Anion Gap 13.6 mmol/L (6.8-13.8); BUN/Creatinine Ratio 18.1 (9.0-21.6); Calcium * 8.1 mg/dL (7.9-10.9); Carbon Dioxide 26.1 mmol/L (24-32.6); Estimated Creat Clear 70.6; Potassium 3.7 mmol/L (3.4-4.6)
[2018-07-05] MEDS ORDERED: diphenhydrAMINE HCL 50 MG/ML VIAL IV ONE (08:13)
[2018-07-05] MEDS: ENOXAPARIN SODIUM 40 MG/0.4 ML SYRG SC SCH (08:22)
--- NOTE | 2018-07-05 10:21 | PN ---
Subjective - Date and Time Seen Date: 07/05/18 Time: 10:16 Subjective Narrative: Patient reports no acute events overnight. She notes that she has had decreasing in pain since an acute rise yesterday after she felt a pop. X-rays revealed a mild displacement of her lesser trochanter, no severe significant surgical intervention is warranted. She states no other acute symptoms currently. She notes her pain is worse with weight-bearing better with rest. Objective - Vitals Vitals: Last Vital Signs Temp 36.9 C 07/05/18 10:12 Pulse 87 07/05/18 10:12 Resp 16 07/05/18 10:12 BP 117/41 07/05/18 10:12 Pulse Ox 94 07/05/18 10:12 - Abnormal Lab Findings Abnormal Lab Findings: Abnormal Lab Results 07/05/18 07/05/18 07/05/18 Range/Units 05:28 05:28 08:30 RBC 2.45 L (4.2-5.4) M/mm3 Hgb 7.6 L* (12.5-16.0) gm/dL Hct 22.9 L* (37.0-47.0) % Random Glucose 113 H (70-110) mg/dL Crossmatch See Detail - Exam Constitutional: Present: Alert, Cooperative Extremity: Present: other - RLE--> bandages clean, dry, intact, sensation intact light touch, 5/5 plantar flexion dorsiflexion of the right ankle, distal capillary refill brisk, diffuse tenderness to right hip region Eye contact: Present: cooperative Thoughts: Present: normal thought pattern Cauti Physician Documentation - Urinary Catheter Management Urethral (Ferrer) Urethral Indwelling: No Date of Insertion: 07/02/18 Time of Insertion: 11:00 Date of Removal: 07/04/18 Time of Removal: 09:56 Assessment/Plan Plan Narrative: - 73 y/o female post-op day #2 s/p right open reduction with cephalmedullary nailing of intertrochanteric femur fracture - WBAT with assistance PRN - PT/OT progress as tolerated - PO diet as tolerated - PO pain medication PRN, 5-325mg percocet 1-2 tabs every 4-6 hours PRN for pain - VTE prophylaxis: lovenox for 4 weeks followed by a 325mg aspirin daily for 6 weeks, SCDs in bed, tawanda hose - Hgb 7.6, per medicine transfusing 2 units - Maintain post-op dressing intact until 07/07/18, can change with gauze and medipore tape every 3-5 days PRN - F/u in orthopedic outpatient clinic at 2 weeks post-op with Dr. Thomas - Chronic medical problems per medicine team - Disps: discharge to [place] for retirement treatment, continue PT/OT - Problems/Diagnosis (1) Intertrochanteric fracture of right hip Problem: Acute Qualifiers: Encounter type: initial encounter Fracture type: closed Fracture alignment: displaced Qualified Code(s): S72.141A - Displaced intertrochanteric fracture of right femur, initial encounter for closed fracture
--- NOTE | 2018-07-05 12:50 | DS ---
(1) Intertrochanteric fracture of right hip Problem: Acute Qualifiers: Encounter type: initial encounter Fracture type: closed Fracture alignment: displaced Qualified Code(s): S72.141A - Displaced intertrochanteric fracture of right femur, initial encounter for closed fracture (2) Benign essential tremor Problem: Chronic (3) Reflex sympathetic dystrophy Problem: Chronic (4) history of multiple fractures Problem: Chronic Description of Stay: Mrs. salmon was admitted through ER with a right intertrochanteric fracture. She underwent an ORIF of the right hip and has done well postoperatively. Her wound dressings remained dry. Her hemoglobin dropped from admission of 10.5 g p ostoperatively 8.1 g 2 this morning of 7.6 g. I have typed and crossed 2 units of packed red blood cells to be infused today. She has had 1 unit in at this dictation and the second is being started. She will be discharged to [facility]. Procedures Performed: see notes below - ORIF of right hip Results and Findings: Lab Pending Results 07/03/18 05:10: WBC 11.9 H, RBC 3.37 L, Hgb 10.5 L, Hct 30.8 L, MCV 91.4, MCH 31.2 H, MCHC 34.1, RDW 12.7, Plt Count 225, MPV 8.9, Immature Gran % (Auto) 1.00 H, Immature Gran # (Auto) 0.12 H, Neutrophils % 64.6, Lymphocytes % 25.6, Monocytes % 8.0, Eosinophils % 0.5, Basophils % 0.3, Nucleated RBC % 0.0, Neutrophils # 7.7 H, Lymphocytes # 3.05, Monocytes # 1.0, Eosinophils # 0.1, Absolute Basophils 0.0 07/03/18 05:10: Sodium 134, Plasma Sodium 134, Potassium 4.1, Chloride 99, Carbon Dioxide 25.9, Anion Gap 13.2, BUN 20, Creatinine 0.91, Est GFR (Non-Af Amer) 64, BUN/Creatinine Ratio 22.0 H, Random Glucose 110, Calcium 8.7 07/04/18 05:01: WBC 9.1 D, RBC 2.56 L, Hgb 8.1 L, Hct 24.1 L, MCV 93.0, MCH 31.6 H, MCHC 34.0, RDW 12.7, Plt Count 171, MPV 9.2 07/04/18 05:01: Sodium 134, Plasma Sodium 134, Potassium 3.5, Chloride 100, Carbon Dioxide 26.9, Anion Gap 10.6, BUN 15, Creatinine 0.78, Est GFR (Non-Af Amer) 77 D, BUN/Creatinine Ratio 19.2, Random Glucose 122 H, Calcium 8.0 07/05/18 05:28: WBC 10.3, RBC 2.45 L, Hgb 7.6 L*, Hct 22.9 L*, MCV 93.5, MCH 31.0, MCHC 33.2, RDW 12.4, Plt Count 177, MPV 9.5 07/05/18 05:28: Sodium 134, Plasma Sodium 134, Potassium 3.7, Chloride 98, Carbon Dioxide 26.1, Anion Gap 13.6, BUN 13, Creatinine 0.72, Est GFR (Non-Af Amer) 84, BUN/Creatinine Ratio 18.1, Random Glucose 113 H, Calcium 8.1 07/05/18 08:30: Blood Type A Positive, Antibody Screen Negative, Crossmatch See Detail Discharge Location: [facility] Disposition: SNF Condition: Fair Level of Care: SNF Discharge Activity: Activity as tolerated, Weight bearing Discharge Diet: General/regular food Shelter Therapy: Physicial Therapy Additional Patient Instructions (free text): Scheduled to see Dr. guillermo in his office in 2 weeks. -Please make TCM appointment unless fci discharge. Thank you! Fallon @ [phone]. Complete Home Medications List: Complete Home Medication List: Hydroxyzine HCl 25 mg PO QID PRN 07/02/18 Pantoprazole Sodium 40 mg PO DAILY 07/02/18 Triamterene/Hydrochlorothiazid [Maxzide 37.5MG/25 MG] 1 tab PO DAILY 07/02/18 Acetaminophen [Tylenol] 1,000 mg PO Q6H PRN tablet 07/05/18 Magnesium Hydroxide [Milk Of Magnesia] 30 ml PO DAILY PRN #1 bottle 07/05/18 Sennosides/Docusate Sodium [Senokot-S] 2 tab PO HS #60 tab 07/05/18 oxyCODONE HCL/ACETAMINOPHEN [Percocet 5 MG/325 MG] 2 tab PO Q4H PRN #60 tab 07/05/18
[2018-07-05 15:30] VITALS: BP 135/67
== END 2018-07-05 15:15 | DRG 481 ==
LOC: ER 12:52 → MS 13:51
PROVIDERS: ADMIT Family Medicine; ATTEND Family Medicine
DX: F17.210 Nicotine dependence, cigarettes, uncomplicated; G90.50 Complex regional pain syndrome I, unspecified; Y92.009 Unspecified place in unspecified non-institutional (private) residence as the place of occurrence of the external cause; D62 Acute posthemorrhagic anemia; I10 Essential (primary) hypertension; W01.0XXA Fall on same level from slipping, tripping and stumbling without subsequent striking against object, initial encounter; S72.141A Displaced intertrochanteric fracture of right femur, initial encounter for closed fracture; G25.0 Essential tremor
CPT/HCPCS: 36415; 73502; 76000; 80048; 85025; 85027; 86850; 86900; 93005; 96374; 97110; 97116; 97161; 97165; 99285; P9016